=== PATIENT | male | born 1985 | race Hispanic/Latino ===

== ENCOUNTER 2020-07-26 07:34 | Outpatient (CLI) | payer BC, SELFPAY ==
--- NOTE | ~2020-07-26 | CT_ITS ---
EXAMINATION: CT abdomen wo/w con DATE: 07/26/2020 08:56 INDICATION: Renal mass TECHNIQUE: Computed tomography (CT) of the abdomen and pelvis was performed without and with 100 mL O mnipaque-350 intravenous contrast utilizing a standard renal mass protocol. Automated exposure contro l and iterative reconstruction technique were employed. The dose-length product was 2134.71 mGy-cm. COMPARISON: None FINDINGS: Small calcified nodule in the right lower lobe consistent with old granulomatous disease. Heart size is normal. No pericardial or pleural effusion. 2.5 cm low-attenuation nonenhancing cyst in the right hepatic lobe. Gallbladder, spleen, pancreas and bilateral adrenal glands are normal. There is periphe ral somewhat wedge-shaped region of decreased enhancement at the upper pole of the left kidney with p oorly defined margins but without significant associated atrophy suspicious for sequela of relatively recent infarct or pyelonephritis. Bilateral kidneys are otherwise normal with symmetric enhancement and no other evident renal parenchymal lesions. No urolithiasis or hydronephrosis. Visualized portion s of the bowels including the appendix are normal. No pathologically enlarged abdominal lymphadenopat hy. Small fat-containing umbilical hernia. Minimal likely physiologic anterior wedging at T12 and L1. No suspicious lytic or blastic bone lesions. IMPRESSION: 1. Poorly defined approximately 1.5 cm peripheral wedge-shaped region of decreased enhancement at the upper pole of the right kidney. The appearance favors sequela of either prior infarct or infection r ather than malignancy. Correlate with clinical history and with any prior outside imaging. If there i s continued clinical concern for malignancy would consider 6 month follow-up pre and postcontrast CT or MRI. Reviewed, dictated and finalized at location A. [employer] IMPRESSION: 1. Poorly defined approximately 1.5 cm peripheral wedge-shaped region of decrea sed enhancement at the upper pole of the right kidney. The appearance favors se quela of either prior infarct or infection rather than malignancy. Correlate wi th clinical history and with any prior outside imaging. If there is continued c linical concern for malignancy would consider 6 month follow-up pre and postcon trast CT or MRI.
[2020-07-26 08:46] LABS: Estimated Glomerular Filt Rate > 60
== END 2020-07-26 07:35 | disposition home or self-care (01) ==
PROVIDERS: PCP Internal Medicine; Visit Provider Urology
DX: N28.89 Other specified disorders of kidney and ureter (principal)
CPT/HCPCS: 74170; Q9967